=== PATIENT | female | born 1970 | race Two or more races ===

== ENCOUNTER 2017-06-05 14:20 | Emergency (ER) | payer OTHER ==
--- NOTE | ~2017-06-05 | EKG ---
PATIENT: JAI SHELTON UNIT #: [id number] Ventricular Rate: 70 BPM Atrial Rate: 70 BPM P-R Interval: 152 ms QRS Duration: 94 ms Q-T Interval: 402 ms QTC Calculation(Bezet): 434 ms P [place]: 57 degrees Calculated R [place]: 19 degrees Calculated T [place]: 28 degrees Diagnosis Line: Normal sinus rhythm Diagnosis Line: Normal ECG Diagnosis Line: When compared with ECG of 09-AUG-2012 19:31, Diagnosis Line: No significant change was found Diagnosis Line: Confirmed by JARED PRADO MD ([id number]) on Diagnosis Line: 06/05/2017 5:29:00 PM INTERPRETING MD: EVE SLATER
--- NOTE | ~2017-06-05 | CR72 ---
[facility] A Service of [facility] & [facility] RADIOLOGY TEXT RESULTS PATIENT: JAI SHELTON LOCATION: [facility] : 74 UNIT #: [id number] AGE: [address]: Prince Rojo MD SEX: F ORDER DR: [id number] [facility] [address] [place], [place] [address] [id number] E MR#: [id number] Acc #: [id number] NAME: JAI SHELTON : 1970 SEX: F STUDY DATE/TIME: 06/05/2017 15:43 UNIT: [facility] ROOM: STUDY DESCRIPTION: CR Chest Single View Portable Attending Physician: Prince Rojo M.D. Ordering Physician: Prince Rojo M.D. Primary Care Physician: Darian Mcallister M.D. MEDICAL IMAGING REPORT This report is preliminary unless electronic signature is present EXAM Portable chest. HISTORY Shortness of air, lower extremity swelling x1 day. COMPARISON 08/09/2012 FINDINGS A single AP portable view of the chest shows both lungs to be clear. The heart is normal in size. The mediastinal contour is normal. No significant bone abnormalities are seen. IMPRESSION Normal portable chest. Dictated by... Tonja Mcknight M.D. THIS IS AN ELECTRONICALLY VERIFIED REPORT Tonja Mcknight M.D. at 06/09/2017 9:31 AM Hellen TD: 06/05/2017 21:32 JOB #: [id number] MEDICAL IMAGING REPORT Page 1 of 1 COPY
[2017-06-05 16:01] LABS: POC - CKMB <1.0 ng/mL (0.0-7.9); POC - TROPONIN <0.05 ng/mL (<=0.05)
[2017-06-05 16:32] LABS: BASOPHIL% 0.7 % (0-2.5); DIFF IND YES; EOSINOPHIL% 0.5 % (0.0-7.0); HEMATOCRIT 40.3 % (35.0-45.0); HEMOGLOBIN 13.1 gm/dL (12.0-16.0); LYMPHOCYTE# 4.2 X10e3 (1.0-3.5); LYMPHOCYTE% 63.8 % (17.0-45.0); MEAN CORPUSCULAR HEMOGLOBIN 27.6 PG (28-34); MEAN CORPUSCULAR HGB CONC 32.4 g/dL (30-36); MEAN PLATELET VOLUME 9.3 FL (6.5-11.5); MONOCYTE# 0.6 X10e3 (0-1.0); MONOCYTE% 9.8 % (3.0-12.0); NEUTROPHIL# 1.6 X10e3 (1.5-7.1); NEUTROPHIL% 25.2 % (40-75); PLATELET COUNT 220 X10e3 (140-420); RED BLOOD COUNT 4.74 X10e (3.90-5.30); RED CELL DISTRIBUTION WIDTH 14.1 % (11.0-15.5); WHITE BLOOD COUNT 6.5 X10e3 (4.0-10.5)
[2017-06-05 16:45] LABS: ALBUMIN SERUM 3.5 g/dL (3.5-5.0); BILIRUBIN, DIRECT 0.1 mg/dL (0.0-0.2); BILIRUBIN,INDIRECT 0.7 mg/dL (0.0-0.9); BILIRUBIN,TOTAL 0.8 mg/dL (0.2-2.0); BUN/CREATININE RATIO 37.5; CALCIUM SERUM 8.5 mg/dL (8.4-10.2); CREATININE SERUM 0.4 mg/dL (0.6-1.4); GLOM FILT RATE Estimated 126.7 mL/min (>60); POTASSIUM 3.7 mmol/L (3.5-5.1); PROTEIN TOTAL SERUM 6.8 g/dL (6.0-8.3)
[2017-06-05 17:09] LABS: ANISOCYTOSIS SL; PLATELET ESTIMATE NORMAL (NORMAL)
[2017-06-05 17:57] LABS: URINE SOURCE CLEAN CATCH
[2017-06-05 18:06] LABS: URINE APPEARANCE CLEAR; URINE BILIRUBIN NEG (NEG); URINE BLOOD NEG (NEG); URINE COLOR YELLOW; URINE GLUCOSE NEG (NEG); URINE KETONE NEG (NEG); URINE LEUKOCYTE ESTERASE NEG (NEG); URINE NITRATE NEG (NEG); URINE PROTEIN NEG (NEG); URINE SPECIFIC GRAVITY 1.022 (1.003-1.035)
[2017-06-05 18:12] LABS: CULTURE INDICATED? NO
== END 2017-06-05 18:32 | disposition home or self-care (01) ==
LOC: CED 14:20
PROVIDERS: Emergency Medicine
DX: R60.0 Localized edema (principal)
CPT/HCPCS: 36415; 71010; 80048; 80076; 81003; 82553; 83880; 84484; 85025; 93005; 99285